=== PATIENT | female | born 1945 ===

== ENCOUNTER → 2023-09-03 11:13 | Outpatient (REF) | payer MEDICARE, SELFPAY | LOC: WDC 11:13 | PROVIDERS: ATTENDING PHYSICIAN Internal Medicine Hematology & Oncology; FAMILY PHYSICIAN Physician Assistant | DX: Z12.31 Encounter for screening mammogram for malignant neoplasm of breast (principal); D47.2 Monoclonal gammopathy; C50.412 Malignant neoplasm of upper-outer quadrant of left female breast; Z13.820 Encounter for screening for osteoporosis; Z78.0 Asymptomatic menopausal state | CPT/HCPCS: 77063; 77067; 77080 ==

== ENCOUNTER → 2024-04-28 14:00 | Outpatient (REF) | payer MEDICARE, SELFPAY | LOC: RAD 14:00 | PROVIDERS: ATTENDING PHYSICIAN Internal Medicine Rheumatology; FAMILY PHYSICIAN Physician Assistant | DX: M06.9 Rheumatoid arthritis, unspecified (principal); M15.9 Polyosteoarthritis, unspecified | CPT/HCPCS: 73130 ==

== ENCOUNTER → 2024-05-12 08:21 | Outpatient (REF) | payer MEDICARE, SELFPAY | LOC: RCS 08:21 | PROVIDERS: ATTENDING PHYSICIAN Internal Medicine Cardiovascular Disease; FAMILY PHYSICIAN Physician Assistant | DX: I35.8 Other nonrheumatic aortic valve disorders (principal) | CPT/HCPCS: 93306 ==

== ENCOUNTER → 2024-09-06 12:42 | Outpatient (REF) | payer MEDICARE, SELFPAY | LOC: WDC 12:42 | PROVIDERS: ATTENDING PHYSICIAN Internal Medicine Hematology & Oncology; FAMILY PHYSICIAN Physician Assistant | DX: Z12.31 Encounter for screening mammogram for malignant neoplasm of breast (principal) | CPT/HCPCS: 77063; 77067 ==

== ENCOUNTER 2024-09-22 11:56 | Outpatient (RCR) | payer MEDICARE, SELFPAY | END 2024-09-22 23:59 | disposition home or self-care (01) | LOC: RPT 11:56 | PROVIDERS: ATTENDING PHYSICIAN Internal Medicine Gastroenterology; FAMILY PHYSICIAN Physician Assistant | DX: M62.89 Other specified disorders of muscle (principal); R15.9 Full incontinence of feces; N39.41 Urge incontinence; K59.00 Constipation, unspecified; Z73.6 Limitation of activities due to disability; R26.89 Other abnormalities of gait and mobility | CPT/HCPCS: 97014; 97112; 97163; 97530 ==

== ENCOUNTER → 2024-09-28 08:10 | Outpatient (REF) | payer MEDICARE, SELFPAY | LOC: WDC 08:10 | PROVIDERS: ATTENDING PHYSICIAN Internal Medicine Hematology & Oncology; FAMILY PHYSICIAN Physician Assistant | DX: Z85.3 Personal history of malignant neoplasm of breast (principal); C50.412 Malignant neoplasm of upper-outer quadrant of left female breast; N63.21 Unspecified lump in the left breast, upper outer quadrant | CPT/HCPCS: 76642 ==

== ENCOUNTER → 2024-10-19 14:13 | Outpatient (REF) | payer MEDICARE, SELFPAY | LOC: RAD 14:13 | PROVIDERS: ATTENDING PHYSICIAN Physician Assistant | DX: R06.02 Shortness of breath (principal); R07.89 Other chest pain; M06.9 Rheumatoid arthritis, unspecified | CPT/HCPCS: 71046 ==

== ENCOUNTER 2024-10-22 07:32 | Outpatient (RCR) | payer MEDICARE, SELFPAY | END 2024-10-22 23:59 | disposition home or self-care (01) | LOC: RPT 07:32 | PROVIDERS: ATTENDING PHYSICIAN Internal Medicine Gastroenterology; FAMILY PHYSICIAN Physician Assistant | DX: M62.89 Other specified disorders of muscle (principal); R15.9 Full incontinence of feces; N39.41 Urge incontinence; K59.00 Constipation, unspecified; Z73.6 Limitation of activities due to disability; R26.89 Other abnormalities of gait and mobility | CPT/HCPCS: 97014; 97112; 97140; 97530 ==

== ENCOUNTER 2024-11-19 07:10 | Outpatient (RCR) | payer MEDICARE, SELFPAY | END 2024-11-19 23:59 | disposition home or self-care (01) | LOC: RPT 07:10 | PROVIDERS: ATTENDING PHYSICIAN Internal Medicine Gastroenterology; FAMILY PHYSICIAN Physician Assistant | DX: M62.89 Other specified disorders of muscle (principal); R15.9 Full incontinence of feces; N39.41 Urge incontinence; K59.00 Constipation, unspecified; Z73.6 Limitation of activities due to disability; R26.89 Other abnormalities of gait and mobility | CPT/HCPCS: 97112; 97140; 97530 ==

== ENCOUNTER → 2024-11-26 08:13 | Outpatient (REF) | payer MEDICARE, SELFPAY | LOC: RCS 08:13 | PROVIDERS: ATTENDING PHYSICIAN Internal Medicine Cardiovascular Disease; FAMILY PHYSICIAN Physician Assistant | DX: R06.09 Other forms of dyspnea (principal); R07.2 Precordial pain | CPT/HCPCS: 93017; 93350; Q9957 ==

== ENCOUNTER → 2024-12-07 12:47 | Outpatient (REF) | payer MEDICARE, SELFPAY | LOC: RCS 12:47 | PROVIDERS: ATTENDING PHYSICIAN Internal Medicine Cardiovascular Disease; FAMILY PHYSICIAN Physician Assistant | DX: I35.8 Other nonrheumatic aortic valve disorders (principal); R06.09 Other forms of dyspnea; R07.2 Precordial pain | CPT/HCPCS: 93306 ==

== ENCOUNTER 2024-12-20 10:07 | Outpatient (RCR) | payer MEDICARE, SELFPAY | END 2024-12-20 23:59 | disposition home or self-care (01) | LOC: RPT 10:07 | PROVIDERS: ATTENDING PHYSICIAN Internal Medicine Gastroenterology; FAMILY PHYSICIAN Physician Assistant | DX: M62.89 Other specified disorders of muscle (principal); R15.9 Full incontinence of feces; N39.41 Urge incontinence; K59.00 Constipation, unspecified; Z73.6 Limitation of activities due to disability; R26.89 Other abnormalities of gait and mobility | CPT/HCPCS: 97112; 97140; 97530 ==

== ENCOUNTER → 2025-08-02 10:37 | Outpatient (REF) | payer MEDICARE, SELFPAY | LOC: RAD 10:37 | PROVIDERS: ATTENDING PHYSICIAN Internal Medicine Rheumatology; FAMILY PHYSICIAN Physician Assistant | DX: M25.572 Pain in left ankle and joints of left foot (principal) | CPT/HCPCS: 73600 ==